=== PATIENT | male | born 1960 | race Caucasian/White ===

== ENCOUNTER 2016-08-19 15:52 | Emergency (ER) | payer SELFPAY ==
[~2016-08-19] VITALS: Ht 170.2 cm; Wt 76.0 kg
[2016-08-19 15:53] VITALS: BP 103/84
== END 2016-08-19 16:23 | disposition left against medical advice (07) ==
LOC: ER 16:04
DX: F10.10 Alcohol abuse, uncomplicated (principal); Z53.21 Procedure and treatment not carried out due to patient leaving prior to being seen by health care provider